=== PATIENT | male | born 1985 | race Caucasian/White ===

== ENCOUNTER 2018-12-16 07:43 | Emergency (ER) | payer OTHER ==
[2018-12-16 07:55] VITALS: BP 135/83
--- NOTE | 2018-12-16 08:20 | ED Physician Documentation ---
PD HPI URI - Stated complaint Stated Complaint: THROAT PAIN/SWELLING - Chief complaint Chief Complaint: Heent - History obtained from History obtained from: Patient - History of Present Illness Timing - onset: How many days ago (2) Timing duration: Days (2) Timing details: Gradual onset Pain level max: 6 Pain level now: 5 Associated symptoms: Fever, Chills, Nasal congestion, Sore throat, Dry cough (mild). No: Productive cough, Hemoptysis, Chest pain, NVD Contributing factors: Sick contact Improves by: Rest, Nothing Worsened by: Other (Swallowing) Recently seen: Not recently seen Review of Systems Constitutional: reports: Fever (Subjective), Chills Throat: reports: Sore throat GI: denies: Vomiting, Diarrhea Skin: denies: Rash PD PAST MEDICAL HISTORY - Past Medical History Past Medical History: No - Past Surgical History Past Surgical History: Yes HEENT: Other - Present Medications Home Medications: Ambulatory Orders Medication Instructions Recorded Confirmed Fluticasone [Flonase] 12/16/18 Ibuprofen [Motrin] 800 mg PO Q8H PRN #30 tablet 12/16/18 - Allergies Allergies/Adverse Reactions: Allergies Allergy/AdvReac Type Severity Reaction Status Date / Time No Known Drug Allergies Allergy Verified 12/16/18 07:55 - Social History Does the pt smoke?: No Smoking Status: Never smoker Does the pt have substance abuse?: No PD ED PE NORMAL - Vitals Vital signs reviewed: Yes - General General: Alert and oriented X 3, No acute distress, Well developed/nourished - HEENT HEENT: PERRL, Ears normal, Moist mucous membranes, Other (Mild posterior oropharyngeal erythema without tonsillar exudates. Uvula midline. Normal phonation. No trismus.) - Neck Neck: Supple, no meningeal sign, No bony TTP, Other (Shotty anterior cervical lymphadenopathy) - Cardiac Cardiac: RRR, Strong equal pulses - Respiratory Respiratory: No respiratory distress, Clear bilaterally - Abdomen Abdomen: Soft, Non tender, Non distended - Derm Derm: Warm and dry, No rash - Neuro Neuro: Alert and oriented X 3 - Psych Psych: Normal mood, Normal affect Results - Vitals Vitals: Vital Signs - 24 hr 12/16/18 07:48 Temperature 36.1 C L Heart Rate 70 Respiratory 16 Rate Blood Pressure 135/83 H O2 Saturation 100 Oxygen O2 Source Room air - Labs Labs: Laboratory Tests 12/16/18 08:30 Group A Strep Rapid Negative PD MEDICAL DECISION MAKING - ED course Complexity details: reviewed results, re-evaluated patient, considered yoselin olea/w patient ED course: 33-year-old male with what appears to be a viral pharyngitis. He is well- appearing, nontoxic. Afebrile. Tolerating p.o. without difficulty. Rapid strep is negative. Will follow up with his doctor for further care. Patient counseled regarding signs and symptoms for which I believe and urgent re- evaluation would be necessary. Patient with good understanding of and agreement to plan and is comfortable going home at this time This document was made in part using voice recognition software. While efforts are made to proofread this document, sound alike and grammatical errors may occur. Departure - Departure Disposition: 01 Home, Self Care Clinical Impression: Viral pharyngitis Condition: Good Instructions: ED Pharyngitis Viral Report Pending Follow-Up: W[facility] FLYNN [Primary Care Provider] - Within 1 week (if not better) Prescriptions: Ibuprofen [Motrin] 800 mg PO Q8H PRN #30 tablet PRN Reason: PAIN &/OR FEVER Comments: Drink plenty of fluids and rest. Your rapid strep test is negative. Follow-up with your doctor for further care. A backup throat culture was sent and if this turns positive, you will receive a phone call for antibiotics. Forms: Activity restrictions Discharge Date/Time: 12/16/18 09:27
[2018-12-16] MEDS ORDERED: IBUPROFEN 800 MG TABLET PO STA (08:35)
== END 2018-12-16 09:27 | disposition home or self-care (01) ==
LOC: ED 07:43
DX: J02.8 Acute pharyngitis due to other specified organisms (principal); B97.89 Other viral agents as the cause of diseases classified elsewhere
CPT/HCPCS: 87070; 87430; 99283; A9270